=== PATIENT | female | born 1960 | race Caucasian/White ===

== ENCOUNTER 2018-01-31 00:46 | Outpatient (CLI) | payer BC, SELFPAY ==
--- NOTE | 2018-01-31 14:55 | DI.MAMMO_ITS ---
SYMPTOM/DIAGNOSIS: SCREENING, [facility], Z00.00 MAMMOGRAMS: Mammograms were interpreted according to the usual protocol including computer analysis with CAD system, tomosynthesis and C view imaging. Comparison is made with prior examinations. Breast density, Category B. Mammograms were interpreted according to the usual protocol including computer analysis with CAD system, tomosynthesis and C view imaging. No masses or microcalcifications are seen. There is nothing to suggest malignancy. IMPRESSION: Negative mammogram. Routine screening is recommended. Category 1B. MQSA ASSESSMENT OF FINDINGS: Negative. Category 1. Patient will receive a letter notifying them of these results. BI-RADS category B. There are scattered areas of fibroglandular density.
== END 2018-01-31 01:06 ==
PROVIDERS: PCP Family Medicine; Visit Provider Family Medicine
DX: Z12.31 Encounter for screening mammogram for malignant neoplasm of breast (principal); Z00.00 Encounter for general adult medical examination without abnormal findings
CPT/HCPCS: 77063; 77067

== ENCOUNTER 2018-05-12 08:29 | Day surgery (SDC) | payer BC, SELFPAY ==
--- NOTE | 2018-05-12 06:59 | W.COLOREPORT ---
Date of service: 05/12/18 Time of Service: 09: Colonoscopy Report Date of procedure: 05/12/18 Pre-op diagnosis general: Colon Cancer Screening Post-op diagnosis procedure note: same (Diverticulosis right sided and left sided) Procedure: Colonoscopy Surgeon: Teri Gray Anesthesia proc note operative: MAC (Jailene Veloz CRNA/ ASA 2) Estimated blood loss (mL): 0 Pathology: none sent Complications: None Disposition: same day Indications: Mrs. Munoz is a pleasant 58-year-old female who was seen in the office for a screening colonoscopy. This will be her first colonoscopy. She has no family history. Risks, benefits and complications have been reviewed. Complications include but are not limited to bleeding, pain, perforation, missed small lesion/polyp, sore throat, aspiration and adverse reaction to the medications. Questions were entertained and answered to their satisfaction and they wished to proceed. No guarantees were given or implied. Prep: Miralax/Dulcolax Procedure Start Time: : Procedure End Time: : Retraction Time: 10 minutes Findings: Mild right sided and left sided diverticulosis Procedure Description: After informed consent was obtained the patient was taken to the procedure room and placed in a left decubitous position. Monitors were applied and a time out was done. The patients name, date of , procedure, allergies to medications and metal in their body was reviewed. The patient was then sedated. Once sedated and comfortable a rectal exam was done. External exam was normal. Internal exam revealed a normal sphincter tone and no palpable masses. The scope was then introduced and retro-flexed. No internal hemorrhoids were identified. The scope was then advanced to the cecum without difficulty. The TI and appendiceal orifice were identified. The prep was good. The scope was then slowly retracted over 10 minutes back into the rectum. There were no polyps. There was mild diverticulosis in the right and left colon. The scope was removed and the patient was woken up and taken back to Same day surgery in stable condition. The patient tolerated the procedure well and there were no immediate complications. Follow up: The patient should follow up in 10 years unless they develop changes in bowel habits or other new gastrointestinal complaints.
--- NOTE | 2018-05-12 07:11 | W.PM.DSUDISC ---
Discharge Plan Disposition Patient Disposition: HOME Condition: Good Discharge Details Reason For Visit: Colon Cancer Screening Attending Provider: Teri Gray Primary Care Provider: Fanny Hammonds V Home Meds and New Rx's Prescriptions: Continued multivitamin with iron [One Daily Multi-Vit w-Mineral] tablet 1 tab PO DAILY RF: 0 levalbuterol tartrate [Xopenex HFA] 45 mcg/actuation HFA aerosol inhaler 2 inh IH Q6H RF: 0 omega-3 fatty acids [Fish Oil Concentrate] 1,000 mg capsule 1,000 mg PO DAILY RF: 0 hydrochlorothiazide 25 MG tablet 25 mg PO DAILY RF: 0 losartan 50 MG tablet 50 mg PO DAILY RF: 0 Discontinued bisacodyl [Dulcolax (bisacodyl)] 5 mg tablet,delayed release (DR/EC) 5 mg PO ONCE Qty: 4 RF: 0 polyethylene glycol 3350 17 gram/dose powder 255 g PO ONCE Qty: 255 RF: 0 Discharge Instructions Instructions: Colonoscopy (DC), Diverticulosis (DC) Additional Instructions: Findings: Diverticulosis Follow up: 10 years Please call if you develop: fevers >101.5 Nausea or Vomiting Abdominal pain that is not transient DAY SURGERY UNIT POST COLONOSCOPY INSTRUCTIONS 1. Because there will be medication in your system for the next 24 hours, you may feel a little sleepy. Your coordination will be affected. Therefore: a. Do not drive or operate dangerous equipment for 24 hours. b. Do not drink alcohol beverages for 24 hours (not even beer). c. Plan to go home and rest for the day. 2. Generally there are no restrictions on your activity after a day or so has gone by, but you may feel a bit fatigued for a few days. 3 After you arrive home you may have a light meal and return to a normal diet as you can tolerate it without feeling sick to your stomach. 4. After surgery, you may feel pain or discomfort. This should be only transient, but if it persists please contact your doctor. 5. If there are any questions regarding the findings of your procedure, please feel free to contact your doctor. 6. If you are unable to contact your doctor with a problem, contact the hospital at [phone]. 7. Continue all your regular medications unless directed otherwise. I understand the above instructions and have no questions. Signature of Patient or Responsible Adult Escort Date/Time Name of Responsible Adult Escort Signature of Nurse Date/Time Activity:: Activity as Tolerated Diet:: High Fiber diet Discharge Orders Discharge Orders: Discharge Order (Routine); Ordered 05/12/18 Ordered By: Teri Gray DS: Diagnosis Discharge Diagnosis (1) S/P colonoscopy: Status: Acute (2) Diverticulosis: Status: Acute
[2018-05-12 08:39] VITALS: BP 129/84; PULSE 99; RESP 16; TEMP 36.5; O2SAT 99
[2018-05-12] MEDS: Lactated Ringers 1,000 ML 80 ML IV (09:10)
[2018-05-12 10:16] VITALS: BP 113/78; PULSE 68; RESP 16; TEMP 36.1; O2SAT 100
== END 2018-05-12 10:25 | disposition home or self-care (01) ==
LOC: SUR 08:29
PROVIDERS: PCP Family Medicine; Visit Provider Surgery
PROC: 0DJD8ZZ Inspection of Lower Intestinal Tract, Via Natural or Artificial Opening Endoscopic (ICD-10-PCS; CPT 45378; principal; 2018-05-12 09:00)
DX: Z12.11 Encounter for screening for malignant neoplasm of colon (principal); K21.9 Gastro-esophageal reflux disease without esophagitis; I10 Essential (primary) hypertension
CPT/HCPCS: 45378

== ENCOUNTER 2018-08-25 16:41 | Outpatient (CLI) | payer BC, SELFPAY ==
--- NOTE | 2018-08-25 11:14 | DI.RAD_ITS ---
SYMPTOMS/DIAGNOSIS: COUGH, R05 PA AND LATERAL CHEST: Comparison 09/23/16. The heart is normal in size. The lungs are clear. The mediastinal structures and pleura appear intact. CONCLUSION: Normal chest.
== END 2018-08-25 17:01 ==
PROVIDERS: PCP Family Medicine; Visit Provider Physician Assistant Medical
DX: R05 Cough (principal)
CPT/HCPCS: 71046

== ENCOUNTER 2020-01-29 10:22 | Outpatient (REF) | payer BC, SELFPAY ==
[2020-01-29 19:19] LABS: Anion Gap 6.6 mmol/L (3-11); BUN 21 mg/dL (7-18); CO2 29.4 mmol/L (21.0-32.0); Calcium 9.5 mg/dL (8.5-10.1); Calculated LDL 137 mg/dL (<100); Chloride 104 mmol/L (98-107); Cholesterol 232 mg/dL (<200); Glucose 99 mg/dL (74-106); HDL Cholesterol 73 mg/dL (40-60); Potassium 3.4 mmol/L (3.5-5.1); Sodium 140 mmol/L (136-145); Triglyceride 112 mg/dL (<150)
== END 2020-01-29 10:42 ==
LOC: NCHCN 10:22
PROVIDERS: PCP Family Medicine; Visit Provider Family Medicine
DX: Z00.00 Encounter for general adult medical examination without abnormal findings (principal); I10 Essential (primary) hypertension
CPT/HCPCS: 80048; 80061

== ENCOUNTER 2020-09-15 10:32 | Emergency (ER) | payer OTHER, SELFPAY ==
[2020-09-15 10:37] VITALS: BP 150/96; PULSE 103; RESP 16; TEMP 36.6; O2SAT 100
[2020-09-15] MEDS: Tetracaine 0.5% 4 ML BTL OP (10:45)
[2020-09-15] MEDS: Balanced Salt Solution 15 ML BTL OP (10:45)
[2020-09-15] MEDS: Fluorescein STRIPS 100/BOX 1 MG OP (10:45)
--- NOTE | 2020-09-15 10:46 | ED.GENADUL_ITS ---
Discharge Plan Disposition Patient Disposition: HOME Condition: Stable Discharge Details Clinical Impression: Ocular pain, right eye, Corneal abrasion Primary Care Provider: Fanny Hammonds V ED Provider: Srinath Macario Home Meds and New Rx's Prescriptions: New erythromycin 5 mg/gram (0.5 %) ointment 0.5 inch ophthalmic (eye) TID Qty: 3.5 RF: 0 Continued multivitamin with iron [One Daily Multi-Vit w-Mineral] tablet 1 tab PO DAILY RF: 0 levalbuterol tartrate [Xopenex HFA] 45 mcg/actuation HFA aerosol inhaler 2 inh IH Q6H RF: 0 omega-3 fatty acids [Fish Oil Concentrate] 1,000 mg capsule 1,000 mg PO DAILY RF: 0 hydrochlorothiazide 25 MG tablet 25 mg PO DAILY RF: 0 losartan 50 MG tablet 50 mg PO DAILY RF: 0 Discharge Instructions Instructions: Corneal Abrasion (ED) Additional Instructions: follow up with your hiv prevention specialist next week if symptoms continue if you have severe worsening pain or decrease in vision return to the emergency department for reevaluation Medical Decision Making 60 yo female comes in with 2 days of right eye discomfort. She states it started when she was getting in the shower and felt something go in the eye, is not sure what it was. She has had discomfort since. She denies vision changes, fevers or discharge. On exam her visual acuity is 20/40 in the right and 20/30 in the left eye. She has no periorbital swelling, perrl, eomi without deep eye pain. Left conjunctiva normal. THe lateral right eye conjunctiva is injected, no discharge. She has no foreign body on exam even under the eye lids. She had immediate relief of pain with tetracaine. On flourescein staining she does have a 2mm corneal abrasion over the right lateral conjunctiva, no evidence of globe rupture on exam. Findings consistent with corneal abrasion. Will have her start antibiotic ointment and have her f/u with her hiv prevention specialist next week if not improving. Return precautions given. Differential Diagnosis Differential Diagnosis: scleritis, corneal abrasion, conjunctivitis, subconjunctival hemorrhage HPI General Mode of arrival: ambulatory . Date/Time Provider Initiated Documentation: 09/15/20 10:33 . Limitations to Documentation: no limitations . Information obtained by: patient . History of Present Illness 60 year old F presents to the emergency department with the chief complaint of right eye pain, described as moderate, and is localized to the eyes. and it has been constant. No relieving factors improve symptom(s), No exacerbating factors reported . Patient notes no other symptoms.. Related Data Home Medications Medication Instructions Recorded Confirmed hydrochlorothiazide 25 mg PO DAILY 09/23/16 09/15/20 losartan 50 mg PO DAILY 01/03/17 09/15/20 levalbuterol tartrate 45 2 inh IH Q6H 02/18/18 09/15/20 mcg/actuation aerosol inhaler multivitamin with iron 1 tab PO DAILY 02/18/18 09/15/20 omega-3 fatty acids 1,000 mg 1,000 mg PO DAILY 02/18/18 09/15/20 capsule erythromycin 0.5 inch OPHTHALMIC (EYE) TID #3.5 09/15/20 g Previous Rx's Medication Instructions Recorded erythromycin 0.5 inch OPHTHALMIC (EYE) TID #3.5 09/15/20 g Allergies Allergy/AdvReac Type Severity Reaction Status Date / Time erythromycin base AdvReac Mild sick to Verified 09/15/20 10:41 stomach General Stated Complaint: EyeProblem HEATHER: 3 Review of Systems All systems reviewed & are unremarkable except as noted in HPI and below Constitutional Constitutional: Denies chills and Denies fever(s) Cardiovascular Cardiovascular: Denies chest pain and Denies dyspnea Respiratory Respiratory: Denies dyspnea Gastrointestinal Gastrointestinal: Denies abdominal pain, Denies nausea and Denies vomiting Integumentary/Breasts Skin/Breast: Denies rash PFSH Medical History (Updated 09/15/20 @ 11:00 by Srinath Macario MD) Asthma Diverticulosis Eye pain GERD (gastroesophageal reflux disease) Hypertension Hypokalemia Obesity Surgical History (Updated 05/12/18 @ 09:50 by Teri Gray MD) H/O oophorectomy H/O vaginal hysterectomy S/P colonoscopy (~05/12/18) [place] teeth extracted Social History (Updated 04/18/18 @ 14:55 by Kristal Worthington RN) Smoking/Tobacco Use Status: Never Smoking risk assessment performed?: Yes Alcohol Intake: never Drug use: Never Substance use type: does not use Do you feel safe in your relationship?: Yes Exam Const General: no acute distress Orientation: alert HENMT Head: normal to inspection Ears: external ears normal General nose exam: external nose normal Mouth: moist mucous membranes Eyes Alignment and Position: alignment normal Neck Neck: normal visual inspection Resp Effort & Inspection: normal respiratory effort and able to speak in complete sentences Cardio Rate: regular rate Skin General skin exam: no rashes or lesions noted Neuro General: patient alert and patient oriented x3 Extrem General: normal to inspection Psych Mental Status: mental status grossly normal Course Vital Signs Vital signs: Vital Signs Temperature 36.6 C 09/15/20 10:37 Pulse 103 H 09/15/20 10:37 Respiratory Rate 16 09/15/20 10:37 Blood Pressure 150/96 H 09/15/20 10:37 Pulse Oximetry 100 09/15/20 10:37 Temperature 36.6 C 09/15/20 10:37 Temperature Source Skin 09/15/20 10:37 Pulse 103 H 09/15/20 10:37 Respiratory Rate 16 09/15/20 10:37 Respiratory Effort Non-Labored 09/15/20 10:37 Blood Pressure 150/96 H 09/15/20 10:37 Blood Pressure Position Sitting 09/15/20 10:37 Pulse Oximetry 100 09/15/20 10:37 Oxygen Delivery Method Room Air 09/15/20 10:37 Oxygen Flow Rate 0 09/15/20 10:37 Pain Level 2 09/15/20 10:37
== END 2020-09-15 11:13 | disposition home or self-care (01) ==
PROVIDERS: Emergency Provider Emergency Medicine; PCP Family Medicine
DX: S05.01XA Injury of conjunctiva and corneal abrasion without foreign body, right eye, initial encounter (principal); X58.XXXA Exposure to other specified factors, initial encounter
CPT/HCPCS: 99283

== ENCOUNTER 2021-03-14 08:43 | Outpatient (CLI) | payer OTHER, SELFPAY ==
--- NOTE | 2021-03-14 | DI.MAMMO_ITS ---
Exam(s) MAMMO SCREENING EXAM: MAMMO SCREENING CLINICAL HISTORY: SCREENING, ON [facility] OF [facility],Z00.00 TECHNIQUE: Mammograms were interpreted according to the usual protocol including computer analysis w [employer] CAD system, tomosynthesis and C-view imaging. COMPARISON: FINDINGS: The breasts are of moderate density with fairly symmetrical distribution of fibroglandular tissue. N o dominant mass or clumped microcalcification is identified in either breast. The current examinatio n is compared with previous examinations including January 2018 and there has been no gross interval change in appearance in comparison with the prior studies. IMPRESSION: No specific evidence of malignancy at this time. Routine screening examinations are suggested at yea rly intervals due to the family history of breast carcinoma. BI-RADS Category 1 - Negative Breast Density - Category B - Scattered areas of fibroglandular density
== END 2021-03-14 09:03 ==
PROVIDERS: PCP Family Medicine; Visit Provider Family Medicine
DX: Z00.00 Encounter for general adult medical examination without abnormal findings (principal); Z12.31 Encounter for screening mammogram for malignant neoplasm of breast; Z80.3 Family history of malignant neoplasm of breast
CPT/HCPCS: 77063; 77067

== ENCOUNTER 2021-06-21 14:41 | Outpatient (REF) | payer OTHER, SELFPAY ==
[2021-06-21 13:40] LABS: Anion Gap 6.7 mmol/L (3-11); BUN 20 mg/dL (7-18); CO2 31.3 mmol/L (21.0-32.0); CREATININE 0.9 mg/dL (0.55-1.02); Calcium 9.1 mg/dL (8.5-10.1); Calculated LDL 150 mg/dL (<100); Chloride 102 mmol/L (98-107); Cholesterol 240 mg/dL (<200); Glucose 97 mg/dL (74-106); HDL Cholesterol 74 mg/dL (40-60); Potassium 3.2 mmol/L (3.5-5.1); Sodium 140 mmol/L (136-145); Triglyceride 84 mg/dL (<150)
== END 2021-06-21 14:42 | disposition home or self-care (01) ==
LOC: NCHCN 14:41
PROVIDERS: PCP Family Medicine; Visit Provider Family Medicine
DX: I10 Essential (primary) hypertension (principal); Z00.00 Encounter for general adult medical examination without abnormal findings
CPT/HCPCS: 80048; 80061

== ENCOUNTER 2021-09-05 21:20 | Outpatient (REF) | payer OTHER, SELFPAY | END 2021-09-05 21:21 | disposition home or self-care (01) | LOC: NCHCN 21:20 | PROVIDERS: PCP Family Medicine; Visit Provider Family Medicine | DX: R30.0 Dysuria (principal); M54.59 Other low back pain | CPT/HCPCS: 87086 ==

== ENCOUNTER 2021-09-29 16:43 | Outpatient (REF) | payer OTHER, SELFPAY ==
[2021-09-29 15:34] LABS: AST 17 U/L (15-37); Calculated LDL 51 mg/dL (<100); Cholesterol 140 mg/dL (<200); Creatine Kinase 100 U/L (26-192); HDL Cholesterol 74 mg/dL (40-60); Triglyceride 75 mg/dL (<150)
== END 2021-09-29 16:44 | disposition home or self-care (01) ==
LOC: NCHCN 16:43
PROVIDERS: PCP Family Medicine; Visit Provider Family Medicine
DX: Z00.00 Encounter for general adult medical examination without abnormal findings (principal); E78.5 Hyperlipidemia, unspecified
CPT/HCPCS: 80061; 82550; 84450

== ENCOUNTER 2022-01-10 13:18 | Outpatient (CLI) | payer BC, SELFPAY ==
--- NOTE | 2022-01-10 | DI.RAD_ITS ---
Exam(s) XR FOOT RT COMPLETE EXAM: XR FOOT RT COMPLETE CLINICAL HISTORY: RT FOOT PAIN M79.671. TECHNIQUE: 2D digital imaging was performed. COMPARISON: No exams were available for comparison FINDINGS: 3 views Some dorsal soft tissue swelling is noted. No evidence of acute fracture or diastasis of the Lisfran c joint. Bone density normal. No osseous lesions. IMPRESSION: No fracture evident. DATA REPOSITORY: RADIATION DOSE DELIVERED:
== END 2022-01-10 13:38 ==
PROVIDERS: PCP Family Medicine; Visit Provider Physician Assistant Medical
DX: M79.671 Pain in right foot (principal); M79.89 Other specified soft tissue disorders
CPT/HCPCS: 73630

== ENCOUNTER 2022-06-17 10:56 | Emergency (ER) | payer BC, SELFPAY ==
[2022-06-17 11:08] VITALS: BP 120/75; PULSE 103; RESP 18; TEMP 36.9; O2SAT 100
--- NOTE | 2022-06-17 11:15 | ED.GENADUL_ITS ---
Discharge Plan Disposition Patient Disposition: Home Condition: Stable Discharge Details Clinical Impression: Sinusitis Primary Care Provider: Fanny Hammonds V ED Provider: Tex Beckwith Home Meds and New Rx's Prescriptions: New amoxicillin-pot clavulanate 875-125 mg tablet 1 tab PO Q12H 7 Days Qty: 14 0RF benzonatate 200 mg capsule 200 mg PO TID PRN (Reason: cough) Qty: 30 0RF albuterol sulfate 90 mcg/actuation HFA aerosol inhaler 2 puff inhalation Q6H PRN (Reason: shortness of breath or wheezing) Qty: 6.7 0RF Continued multivitamin with iron [One Daily Multi-Vit w-Mineral] tablet 1 tab PO DAILY levalbuterol tartrate [Xopenex HFA] 45 mcg/actuation HFA aerosol inhaler 2 inh IH Q6H omega-3 fatty acids [Fish Oil Concentrate] 1,000 mg capsule 1,000 mg PO DAILY hydrochlorothiazide 25 MG tablet 25 mg PO DAILY losartan 50 MG tablet 50 mg PO DAILY erythromycin 5 mg/gram (0.5 %) ointment 0.5 inch ophthalmic (eye) TID Qty: 3.5 0RF No Action rosuvastatin 5 mg tablet 5 mg PO DAILY Patient Comments: TAKE 1 TABLET BY MOUTH EVERY DAY Discharge Instructions Instructions: Sinusitis (ED) Additional Instructions: It is recommended that you take a probiotic for the next 30 days. Please do not take this with your antibiotic but take it in between doses. Stay well-hydrated and get plenty of rest and you may continue to use [id number] medication as needed for symptoms. If you develop any new or significant worsening of symptoms return to the emergency department for reassessment otherwise follow-up with your primary care provider if not improving. Stand Alone Forms: Work Release Referrals: Fanny Hammonds MD [Primary Care Provider] - (As needed for reassessment or if not improving) Discharge Data Discharge Date/Time-TO BE ENTERED AT DEPARTURE: 06/17/22 11:39 Medical Decision Making URI x1 week. Improved after 7 days but over the last 24 to 36 hours has had worsening sinus pain, cough, and productive cough along with change in sinus drainage. States daily COVID testing due to work requirements which have been negative. Exam does show significant sinus congestion and pressure otherwise a unremarkable nondiagnostic exam with normal cardiac and respiratory findings. Patient's symptoms highly suspicious for sinusitis so we will prescribe Augmentin. Patient has history of asthma so we will give refill of inhaler and Tessalon Perles. After discussion of diagnosis and plan of care patient has no further needs, questions, or concerns and states clear understanding to return to the emergency department for any worsening symptoms. This documentation was generated using [employer] dictation system, please disregard any oddities of phrase or misspellings. HPI General Mode of arrival: ambulatory . Date/Time Provider Initiated Documentation: 06/17/22 11:00 . Limitations to Documentation: no limitations . Information obtained by: patient and RN notes reviewed . History of Present Illness 62 year old F presents to the emergency department with the chief complaint of Worsening sinus pain and discomfort, described as moderate, with intensity rated at 8. Quality is described as aching, Patient reports no radiation. Patient started experiencing this day(s) (10) and it has been constant. No relieving factors improve symptom(s), No exacerbating factors reported . Patient did receive the following treatments prior to arrival, NSAID Related Data Home Medications Medication Instructions Recorded Confirmed hydrochlorothiazide 25 mg tablet 25 mg PO DAILY 09/23/16 06/17/22 losartan 50 mg tablet 50 mg PO DAILY 01/03/17 06/17/22 levalbuterol tartrate 45 2 inh inhalation Q6H 02/18/18 06/17/22 mcg/actuation aerosol inhaler (Xopenex HFA) multivitamin with iron (One Daily 1 tab PO DAILY 02/18/18 06/17/22 Multivitamins with Minerals tablet) omega-3 fatty acids 1,000 mg 1,000 mg PO DAILY 02/18/18 09/15/20 capsule (Fish Oil Concentrate) erythromycin 5 mg/gram (0.5 %) eye 0.5 inch ophthalmic (eye) TID #3.5 09/15/20 06/17/22 ointment grams albuterol sulfate 90 mcg/actuation 2 puff inhalation Q6H PRN 06/17/22 aerosol inhaler shortness of breath or wheezing #6.7 grams amoxicillin 875 mg-potassium 1 tab PO Q12H 7 days #14 tabs 06/17/22 clavulanate 125 mg tablet benzonatate 200 mg capsule 200 mg PO TID PRN cough #30 caps 06/17/22 rosuvastatin 5 mg tablet 5 mg PO DAILY 06/17/22 06/17/22 Previous Rx's Medication Instructions Recorded erythromycin 5 mg/gram (0.5 %) eye 0.5 inch ophthalmic (eye) TID #3.5 09/15/20 ointment grams albuterol sulfate 90 mcg/actuation 2 puff inhalation Q6H PRN 06/17/22 aerosol inhaler shortness of breath or wheezing #6.7 grams amoxicillin 875 mg-potassium 1 tab PO Q12H 7 days #14 tabs 06/17/22 clavulanate 125 mg tablet benzonatate 200 mg capsule 200 mg PO TID PRN cough #30 caps 06/17/22 Allergies Allergy/AdvReac Type Severity Reaction Status Date / Time erythromycin base AdvReac Mild sick to Verified 06/17/22 11:25 stomach General Stated Complaint: Sorethroat HEATHER: 3 Review of Systems Constitutional Constitutional: Reports body ache(s), Denies chills, Denies fever(s), Reports headache(s) and Reports malaise Eyes Eyes: Denies eye discharge ENT Ears, Nose, Mouth, and Throat: Reports as per HPI, Denies ear discharge, Denies otalgia, Reports headache(s), Reports nasal congestion, Denies neck pain, Reports sinus pain, Reports sinus pressure, Reports sore throat and Denies th roat swelling Cardiovascular Cardiovascular: Denies chest pain and Denies dyspnea Respiratory Respiratory: Reports cough and Denies dyspnea Musculoskeletal Musculoskeletal: Denies joint swelling and Denies neck pain Integumentary/Breasts Skin/Breast: Denies rash Neurologic Neurologic: Reports headache(s) Allergic/Immunologic Allergic/Immunologic: Denies throat swelling PFSH All Active Problems (Updated 06/17/22 @ 11:16 by Tex Beckwith NP) Ocular pain, right eye (Acute) Corneal abrasion (Acute) Sinusitis (Acute) Diverticulosis (Acute) S/P colonoscopy (Acute ~05/12/18) Encounter for screening colonoscopy (Acute) Medical History (Updated 06/17/22 @ 11:16 by Tex Beckwith NP) Asthma Eye pain GERD (gastroesophageal reflux disease) Hypertension Hypokalemia Obesity Surgical History H/O oophorectomy H/O vaginal hysterectomy [place] teeth extracted Social History Smoking/Tobacco Use Status: Never Smoking risk assessment performed?: Yes Alcohol Intake: current Alcohol Intake frequency: holidays/special occasions only Drug use: Never Substance use type: does not use Do you feel safe at home: Yes Do you feel safe in your relationship?: Yes Exam Const General: cooperative, comfortable and no acute distress Orientation: alert and awake [facility] Head: normal to inspection, normocephalic and atraumatic Ears: hearing grossly normal bilaterally and TM's normal bilaterally General nose exam: external nose normal Face and sinus: no erythema and sinus tenderness ethmoid and maxillary Mouth: oral mucosae normal, no drooling, no muffled voice and no trismus Throat: posterior oropharynx normal Neck Neck: normal visual inspection, full ROM, no lymphadenopathy, no meningeal signs, trachea midline and supple Resp Effort & Inspection: normal respiratory effort and able to speak in complete sentences Auscultation: clear to auscultation bilaterally Cardio Rate: regular rate Rhythm: regular rhythm Heart Sounds: S1 normal, S2 normal, normal S1 and S2, no click, no gallops, no murmurs and no rubs Skin General skin exam: no rashes or lesions noted and dry skin (warm) Neuro General: patient alert, patient awake, patient oriented x3, gait normal and moves all extremities Cognition: normal cognition Speech: speech normal
== END 2022-06-17 11:39 | disposition home or self-care (01) ==
PROVIDERS: Emergency Provider Nurse Practitioner Family; PCP Family Medicine
DX: J32.9 Chronic sinusitis, unspecified (principal); J45.909 Unspecified asthma, uncomplicated; I10 Essential (primary) hypertension
CPT/HCPCS: 99283; 99284

== ENCOUNTER 2022-06-29 18:36 | Outpatient (REF) | payer BC, SELFPAY ==
[2022-06-29 16:44] LABS: Bilirubin Negative (Negative); Blood Negative (Negative); Clarity Clear (Clear); Glucose Negative (Negative); Ketones Negative (Negative); Leukocyte Esterase Small (Negative); Nitrite Negative (Negative); Urobilinogen 0.2 mg/dL (Up to 0.2); pH 6.5 (5-8)
[2022-06-29 16:55] LABS: Epithelial Cells Few HPF (Negative); RBC 0-2 HPF (0-2)
[2022-06-29 16:56] LABS: Bacteria Few HPF (Negative); C & S Indicated? Yes; Casts Negative LPF (Negative); Crystals Negative HPF (Negative); Mucus Negative (Negative)
== END 2022-06-29 18:37 | disposition home or self-care (01) ==
LOC: NCHCN 18:36
PROVIDERS: PCP Family Medicine; Visit Provider Family Medicine
DX: R30.0 Dysuria (principal)
CPT/HCPCS: 81003; 81015; 87086

== ENCOUNTER 2022-11-06 18:48 | Outpatient (REF) | payer BC, SELFPAY ==
[2022-11-06 13:20] LABS: Bilirubin Negative (Negative); Blood Large (Negative); Clarity Sl Cloudy (Clear); Glucose Negative (Negative); Ketones Negative (Negative); Leukocyte Esterase Small (Negative); Nitrite Negative (Negative); Specific Gravity 1.015 (1.005-1.025)
[2022-11-06 13:31] LABS: Bacteria Few HPF (Negative); Epithelial Cells Rare HPF (Negative); RBC >50 HPF (0-2); WBC 20-50 HPF (0-5)
[2022-11-06 13:32] LABS: C & S Indicated? Yes; Casts Negative LPF (Negative); Crystals Negative HPF (Negative); Mucus Negative (Negative)
== END 2022-11-06 18:49 | disposition home or self-care (01) ==
LOC: NCHCN 18:48
PROVIDERS: PCP Family Medicine; Visit Provider Family Medicine
DX: R31.9 Hematuria, unspecified (principal)
CPT/HCPCS: 81003; 81015; 87086

== ENCOUNTER 2022-12-07 19:02 | Outpatient (REF) | payer BC, SELFPAY ==
[2022-12-07 15:30] LABS: HCT 40.6 % (36.0-46.0); HGB 13.9 g/dL (11.2-15.7); MCHC 34.2 % (32.0-36.0); MCV 88 fL (80-95); MPV 10.2 fL (8.0-11.0); Platelet Count 232 10^3/uL (130-400); RBC 4.64 10^6/uL (3.93-5.22); RDW 12.5 % (11.7-14.6); RDW-SD 40.2 fL; WBC 5.17 10^3/uL (4.4-10.8)
[2022-12-07 15:39] LABS: Anion Gap 9.6 mmol/L (3-11); BUN 15 mg/dL (7-18); CO2 27.4 mmol/L (21.0-32.0); CREATININE 1.1 mg/dL (0.55-1.02); Calcium 9.1 mg/dL (8.5-10.1); Chloride 103 mmol/L (98-107); Estimated GFR 57.52 (mL/min/1.73m2); Glucose 142 mg/dL (74-106); Potassium 3.2 mmol/L (3.5-5.1); Sodium 140 mmol/L (136-145)
== END 2022-12-07 19:03 | disposition home or self-care (01) ==
LOC: NCHCN 19:02
PROVIDERS: PCP Family Medicine; Visit Provider Family Medicine
DX: N13.30 Unspecified hydronephrosis (principal); I10 Essential (primary) hypertension; R79.89 Other specified abnormal findings of blood chemistry
CPT/HCPCS: 80048; 85027

== ENCOUNTER 2023-02-12 09:34 | Outpatient (REF) | payer BC, SELFPAY ==
[2023-02-12 16:16] LABS: Hemoglobin A1C 5.6 % (<5.7)
[2023-02-12 16:37] LABS: ALT 31 U/L (14-59); AST 19 U/L (15-37); Albumin 3.8 g/dL (3.4-5.0); Alkaline Phosphatase 74 U/L (46-116); Anion Gap 7.7 mmol/L (3-11); BUN 21 mg/dL (7-18); Bilirubin, Total 0.5 mg/dL (0.2-1.0); CO2 28.3 mmol/L (21.0-32.0); CREATININE 0.9 mg/dL (0.55-1.02); Calcium 9.6 mg/dL (8.5-10.1); Chloride 103 mmol/L (98-107); Estimated GFR 73.19 (mL/min/1.73m2); Glucose 109 mg/dL (74-106); Potassium 3.5 mmol/L (3.5-5.1); Sodium 139 mmol/L (136-145); Total Protein 7.1 g/dL (6.4-8.2)
== END 2023-02-12 09:35 | disposition home or self-care (01) ==
LOC: NCHCN 09:34
PROVIDERS: PCP Family Medicine; Visit Provider Family Medicine
DX: Z00.00 Encounter for general adult medical examination without abnormal findings (principal); E78.5 Hyperlipidemia, unspecified; R73.09 Other abnormal glucose
CPT/HCPCS: 80053; 83036

== ENCOUNTER → 2023-04-23 01:32 | Outpatient (CLI) | payer BC, SELFPAY ==
--- NOTE | 2023-04-23 | DI.MAMMO_ITS ---
Exam(s) MAMMO SCREENING EXAM: MAMMO SCREENING CLINICAL HISTORY: SCREENING FOR BREAST CANCER Z12.31 PREVENTIVE [facility] C[facility] Z00.00. TECHNIQUE: Bilateral full field digital CC and MLO mammographic images were obtained with 3D tomosyn thesis and utilizing computer aided detection (CAD). COMPARISON: Prior mammograms were reviewed. FINDINGS: There has been no significant change in the appearance and distribution of the fibroglandular tissue which is again noted be predominately fatty.. There are no CAD designations. There are no new spiculated masses nor malignant appearing microcalcification groups. There is no significant architectural distortion nor skin thickening-retraction. IMPRESSION: No radiographic evidence of malignancy. BI-RADS Category 1 - Negative Breast Density - Category A - Almost entirely fatty Breast density Category C or D implies that the patient has dense breast tissue. Dense breast tissue can make it harder to find cancer on a mammogram. Dense breast tissue is also associated with an incr eased risk of breast cancer. This information about the result of the mammogram report was provided to the patient to raise their awareness. Use this report when you speak with the patient about their risks for breast cancer, which includes their family history. At that time, you may recommend additional screening tests (Ultrasoun d or MRI) as these tests may add significant information. A negative radiographic report should not delay biopsy if a dominant or clinically suspicious mass is present. Up to ten percent of cancers are not identified on mammography. A negative report may reinforce clinical impression. Adenosis and dense breasts may obscure an underlying neoplasm. False positive reports average 6 to 10%. Patient will receive a letter notifying them of these results.
== END ==
PROVIDERS: PCP Family Medicine; Visit Provider Family Medicine
DX: Z12.31 Encounter for screening mammogram for malignant neoplasm of breast (principal)
CPT/HCPCS: 77063; 77067

== ENCOUNTER 2024-02-27 17:46 | Emergency (ER) | payer BC, SELFPAY ==
[2024-02-27 17:47] VITALS: BP 142/89; PULSE 103; RESP 18; TEMP 36.9; O2SAT 98
[2024-02-27 17:52] VITALS: BP 142/89; PULSE 103; RESP 18; TEMP 36.9; O2SAT 98
--- NOTE | 2024-02-27 18:05 | ED.GENADUL_ITS ---
Discharge Plan Disposition Patient Disposition: Home Condition: Stable Discharge Details Clinical Impression: Hematuria, Hypokalemia Primary Care Provider: Fanny Hammonds V ED Provider: Carolina Mayes Home Meds and New Rx's Prescriptions: No Action multivitamin with iron [One Daily Multi-Vit w-Mineral] tablet 1 tab PO DAILY levalbuterol tartrate [Xopenex HFA] 45 mcg/actuation HFA aerosol inhaler 2 inh IH Q6H omega-3 fatty acids [Fish Oil Concentrate] 1,000 mg capsule 1,000 mg PO DAILY fluticasone propionate [Flovent HFA] 44 mcg/actuation HFA aerosol inhaler 2 puff inhalation BID Rx Instructions: administer with spacer ibuprofen 200 mg tablet 200 mg PO Q6H PRN acetaminophen 500 mg capsule 500 mg PO Q6H PRN hydrochlorothiazide 25 MG tablet 25 mg PO DAILY losartan 50 MG tablet 50 mg PO DAILY benzonatate 200 mg capsule 200 mg PO TID PRN (Reason: cough) Qty: 30 0RF albuterol sulfate 90 mcg/actuation HFA aerosol inhaler 2 puff inhalation Q6H PRN (Reason: shortness of breath or wheezing) Qty: 6.7 0RF rosuvastatin 5 mg tablet 5 mg PO DAILY Patient Comments: TAKE 1 TABLET BY MOUTH EVERY DAY Discharge Instructions Instructions: Blood in Urine (Hematuria), Adult ED Additional Instructions: You were seen in the emergency department today for evaluation of hematuria and urinary tract symptoms. Department a full physical examination performed, had a urinalysis that showed blood but no sign of infections, had otherwise reassuring laboratory studies with the exception of a borderline low potassium. You had a CT scan that showed evidence of inflammation in your bladder and need to follow- up with your urologist to discuss next [place] management. He can also use senna and MiraLAX [id number] for constipation management. Thank you for allowing us to be part of your care. HPI General Mode of arrival: ambulatory . Date/Time Provider Initiated Documentation: 02/27/24 17:53 . Limitations to Documentation: no limitations . Information obtained by: patient and old records reviewed . HPI Narrative: HPI: This is a 63-year-old female patient with a past medical history significant for hyperlipidemia, episode of hydronephrosis identified on ultrasound last year of unknown etiology, as well as diverticulosis. She is presenting for evaluation of intermittent urinary symptoms including hematuria, dysuria, and urinary urgency and frequency. The patient reports that she had an episode of hematuria on Saturday, states that she notices a worsening of her urinary symptoms when she is constipated. She did not have symptoms throughout the week but this afternoon she noted urgency, frequency, and hematuria with dysuria. This prompted her to seek care. The patient reports that she was previously referred to urology for evaluation of her ultrasonography abnormalities, but has never had any urological procedures done. She has not yet been able to follow-up with urology due to home and family commitments. The patient reports that she has not taken antibiotics in some time, has not had a fever, has been eating and drinking normally and not experiencing nausea or vomiting. She is not experiencing flank pain or abdominal pain. The patient reports that she does not use any [id number] medications for management of her constipation, did pass a normal stool yesterday but feels like she is becoming constipated again. Exam: Gen: Awake and alert, in no apparent distress HEENT: Non-icteric sclera Neck: Supple Lungs: No apparent respiratory distress, normal respiratory effort. CV: Appears well perfused, strong distal pulses Abdomen: Non-distended, soft, nontender, no rigidity, rebound, guarding. There is no CVA tenderness nor overlying skin changes on the back or flanks MSK: Moves 4 extremities without apparent limitation in ROM Skin: Visualized skin without rashes, cyanosis. Neuro: Normal Gait, no obvious focal deficits or facial asymmetry. Speaks in full, clear sentences. Psych: Appropriate for situation. MDM: This is a 63-year-old female patient presenting for evaluation of urinary tract symptoms. My differential includes but is not limited to urinary tract infection, most consistent with simple cystitis. I considered pyelonephritis, kidney stone, but this is less consistent with the patient's history and physical examination. The patient has no evidence of systemic illness to suggest bacteremia, sepsis, metabolic or electrolyte derangements, kidney injury. I did review the ultrasound that was performed last year, which showed slight prominence of the collecting systems bilaterally which at that time was thought to represent mild hydronephrosis. I also consider the contribution of constipation on this patient's urinary tract symptoms. She reassuringly does not have obstipation which would suggest small bowel obstruction, and has a benign abdominal examination at this time. We will obtain a urinalysis. ED Course: Urinalysis shows gross hematuria with no evidence of infection. Given this finding, I am concerned for malignancy versus renal stone, and obtain laboratory studies as well as a CT of the abdomen and pelvis. The laboratory studies showed no leukocytosis, anemia, or thrombocytopenia, making coagulopathy less likely in this patient with no history of prolonged bleeding. Her chemistry panel demonstrates very mild hypokalemia, slightly elevated BUN to 23 but no other evidence of renal dysfunction, no evidence of liver disease. CT showed evidence of cystitis but less concerning for malignancy and no evidence of stone. Given the lack of infectious changes on UA I did not see an indication for initiation of antibiotics, and the patient will likely require cystoscopy and for this reason a referral to urology was provided. At this time, the patient has had a full medical evaluation and is safe for discharge to home. They are hemodynamically stable, ambulatory, and tolerating PO. They are understanding of the follow-up plan and return precautions. They left our facility without incident. Carolina Mayes MD Related Data Home Medications ?Medication ?Instructions ?Recorded ?Confirmed hydrochlorothiazide 25 mg tablet 25 mg PO DAILY 09/23/16 02/27/24 losartan 50 mg tablet 50 mg PO DAILY 01/03/17 02/27/24 levalbuterol tartrate 45 2 inh inhalation Q6H 02/18/18 02/27/24 mcg/actuation aerosol inhaler (Xopenex HFA) multivitamin with iron (One Daily 1 tab PO DAILY 02/18/18 02/27/24 Multivitamins with Minerals tablet) omega-3 fatty acids 1,000 mg 1,000 mg PO DAILY 02/18/18 02/27/24 capsule (Fish Oil Concentrate) albuterol sulfate 90 mcg/actuation 2 puff inhalation Q6H PRN 06/17/22 02/27/24 aerosol inhaler shortness of breath or wheezing #6.7 grams benzonatate 200 mg capsule 200 mg PO TID PRN cough #30 caps 06/17/22 02/27/24 rosuvastatin 5 mg tablet 5 mg PO DAILY 06/17/22 02/27/24 acetaminophen 500 mg capsule 500 mg PO Q6H PRN 02/18/23 02/27/24 fluticasone propionate 44 2 puff inhalation BID 02/18/23 02/27/24 mcg/actuation HFA aerosol inhaler (Flovent HFA) ibuprofen 200 mg tablet 200 mg PO Q6H PRN 02/18/23 02/27/24 Previous Rx's ?Medication ?Instructions ?Recorded albuterol sulfate 90 mcg/actuation 2 puff inhalation Q6H PRN 06/17/22 aerosol inhaler shortness of breath or wheezing #6.7 grams benzonatate 200 mg capsule 200 mg PO TID PRN cough #30 caps 06/17/22 Allergies Allergy/AdvReac Type Severity Reaction Status Date / Time erythromycin base AdvReac Mild sick to Verified 02/27/24 17:50 stomach citalopram (From Celexa) AdvReac feels foggy Verified 02/27/24 21:30 General Stated Complaint: Urinary HEATHER: 3 Course Vital Signs Vital signs: Vital Signs Temperature 36.9 C 02/27/24 17:47 Pulse 103 H 02/27/24 17:47 Respiratory Rate 18 02/27/24 17:47 Blood Pressure 142/89 H 02/27/24 17:47 Pulse Oximetry 98 02/27/24 17:47 Temperature 36.9 C 02/27/24 17:52 Temperature Source Temporal Artery Scan 02/27/24 17:52 Pulse 103 H 02/27/24 17:52 Respiratory Rate 18 02/27/24 17:52 Respiratory Effort Normal, Non-Labored 02/27/24 17:52 Blood Pressure 142/89 H 02/27/24 17:52 Pulse Oximetry 98 02/27/24 17:52 Lab/Test Results Lab/Test Results: Laboratory Tests Range/Units 02/26/24 17:50 Urine Color Cancelled Urine Clarity Cancelled Urine pH Cancelled Ur Specific [place] Cancelled Urine Protein Cancelled Urine Ketones Cancelled Urine Blood Cancelled Urine Nitrite Cancelled Urine Bilirubin Cancelled Urine Urobilinogen Cancelled Ur Leukocyte Esterase Cancelled Urine Glucose Cancelled Medical Decision Making Quality:SDOH Health Related Social Needs: No Data to Display PFSH All Active Problems (Updated 02/27/24 @ 20:43 by Carolina Mayes MD) Hypokalemia (Acute) Hematuria (Acute) Reaction, situational (Chronic) Hyperlipidemia (Acute) Hydronephrosis (Acute) Corneal abrasion (Acute) Ocular pain, right eye (Acute) Diverticulosis (Acute) S/P colonoscopy (Acute ~05/12/18) Encounter for screening colonoscopy (Acute) Medical History (Updated 02/27/24 @ 20:43 by Carolina Mayes MD) Ovarian cyst Cerumen impaction Obesity Asthma Hypertension GERD (gastroesophageal reflux disease) Eye pain Hypokalemia Surgical History (Updated 02/18/23 @ 13:57 by Latesha Iraheta RN) History of oophorectomy, unilateral [place] teeth extracted H/O vaginal hysterectomy H/O oophorectomy Social History Smoking/Tobacco Use Status: Never Smoking risk assessment performed?: Yes Alcohol Intake: current Alcohol Intake frequency: holidays/special occasions only Drug use: Never Substance use type: does not use Do you feel safe at home: Yes Do you feel safe in your relationship?: Yes
[2024-02-27 18:20] LABS: Bilirubin Negative (Negative); Blood Large (Negative); Clarity Turbid (Clear); Glucose Negative (Negative); Ketones Negative (Negative); Leukocyte Esterase Negative (Negative); Nitrite Negative (Negative); Specific Gravity >= 1.030 (1.005-1.025); Urobilinogen 0.2 mg/dL (Up to 0.2)
[2024-02-27 18:37] LABS: RBC >50 HPF (0-2)
[2024-02-27 18:39] LABS: C & S Indicated? No
--- NOTE | 2024-02-27 18:45 | DI.CT_ITS ---
Exam(s) CT ABDOMEN PELVIS W EXAM: CT ABDOMEN PELVIS W CLINICAL HISTORY: painless hematuria, eval stone, tumor. TECHNIQUE: Imaging Protocol: Axial computed tomography images with coronal and sagittal reformatted images were created and reviewed CONTRAST MATERIAL: Intravenous: Omnipaque 350 Contrast volume:85 ml Oral: / no COMPARISON: No exams were available for comparison FINDINGS: ABDOMEN and PELVIS: Lung Bases: No acute findings. Liver: Normal density. No suspicious mass. Gallbladder and biliary tract: No radiodense calculus. No biliary dilation. Pancreas: Normal density. No abnormal calcifications or inflammatory process. No evidence of mass. Spleen: Normal. Kidneys: Normal size, contour and axis. No radiodense stones. No obstructive uropathy. No suspicious masses seen. Adrenal glands: No masses seen. Vasculature: Abdominal aorta non-dilated. Soft tissues: Unremarkable. Bladder: N the urinary bladder is empty, limiting evaluation. There is enhancement of the wall whic h could indicate cystitis. No calculi. Bowel: No obstruction. No bowel wall thickening. Mild diverticulosis lower descending and sigmoid colon. No evidence of diverticulitis. Peritoneal cavity: No ascites. No focal collection. No mesenteric inflammatory response. Bones: Unremarkable for age. Reproductive organs: Status post hysterectomy. Lymph nodes: No pathologically enlarged lymph nodes. IMPRESSION:: Upon the urinary bladder is empty, limited evaluation. There is however apparent wall thickening as well as enhancement of the mucosa, suspicious for cystitis. No large mass is visible. No evidence of renal mass or hydronephrosis. RADIATION DOSE DELIVERED: 649.25mGy.cm Total DLP DATA REPOSITORY: All CT scans at this facility are submitted to the National Radiology Data Registry (NRDR) Dose Index Registry (DIR) with the [employer] (ACR). RADIATION OPTIMIZATION: All CT scans at this facility use at least one of these dose optimization te chniques: automated exposure control; mA and/or kV adjustment per patient size (includes targeted exa ms where dose is matched to clinical indication); or iterative reconstruction.
[2024-02-27 19:35] LABS: Abs Immature Grans 0.03 10^3/uL (0.0-0.06); Absolute Basophil Count 0.04 10^3/uL (0.0-0.2); Absolute Eosinophil Count 0.21 10^3/uL (0.0-0.7); Absolute Lymphocyte Count 1.12 10^3/uL (1.2-3.4); Absolute Monocyte Count 0.55 10^3/uL (0.1-0.8); Absolute Neutrophil Count 8.22 10^3/uL (1.2-6.7); Basophils % 0.4 %; Eosinophils % 2.1 %; HCT 43.1 % (36.0-46.0); HGB 14.5 g/dL (11.2-15.7); Immature Grans % 0.3 %; MCH 30.1 pg (27.0-33.0); MCHC 33.6 % (32.0-36.0); MCV 90 fL (80-95); MPV 9.4 fL (8.0-11.0); Monocytes % 5.4 %; Neutrophils % 80.8 %; Platelet Count 239 10^3/uL (130-400); RBC 4.81 10^6/uL (3.93-5.22); RDW 12.2 % (11.7-14.6); RDW-SD 40.5 fL; WBC 10.17 10^3/uL (4.4-10.8)
[2024-02-27 19:48] LABS: ALT 26 U/L (14-59); AST 19 U/L (15-37); Alkaline Phosphatase 80 U/L (46-116); Anion Gap 10.8 mmol/L (3-11); BUN 23 mg/dL (7-18); Bilirubin, Total 0.58 mg/dL (0.2-1.0); CO2 28.2 mmol/L (21.0-32.0); CREATININE 0.8 mg/dL (0.55-1.02); Calcium 9.6 mg/dL (8.5-10.1); Chloride 103 mmol/L (98-107); Estimated GFR 83.78 (mL/min/1.73m2); Glucose 98 mg/dL (74-106); Potassium 3.4 mmol/L (3.5-5.1); Sodium 142 mmol/L (136-145); Total Protein 7.5 g/dL (6.4-8.2)
[2024-02-27] MEDS: Normal Saline - Diluent 50 ML VIAL IJ (19:53)
[2024-02-27] MEDS: Omnipaque 350 MG/ML 100 ML BTL IJ (19:56)
--- NOTE | 2024-02-27 20:26 | DI.VRAD_ITS ---
PROCEDURE INFORMATION: Exam: CT Abdomen And Pelvis With Contrast Exam date and time: 02/27/2024 7:51 PM Age: 63 years old Clinical indication: Other: Painless hematuria, eval stone, tumor TECHNIQUE: Imaging protocol: Computed tomography of the abdomen and pelvis with contrast. Contrast material: OMNI 350; Contrast volume: 85 ml; Contrast route: INTRAVENOUS (IV); COMPARISON: US RENAL 11/28/2022 9:07 AM FINDINGS: Liver: Fatty liver with no mass lesions. Small hepatic calcification compatible with a benign granuloma. Gallbladder and biliary ducts: No calcified stones. No gross ductal dilation. Pancreas: No ductal dilation. No mass . Spleen: Mild splenomegaly without focal splenic lesions. Adrenal glands: No suspicious mass. Kidneys and ureters: No significant stones in the collecting systems on postcontrast imaging. Stomach and bowel: Scattered colonic diverticula without inflammation. No focal pathology in the small bowel. Appendix: No evidence of appendicitis. Intraperitoneal space: No free air. No significant fluid collection. Vasculature: No abdominal aortic aneurysm. Lymph nodes: No significantly enlarged lymph nodes. Urinary bladder: Moderate wall thickening of the urinary bladder is suspected, the bladder is nearly completely decompressed and this is poorly assessed. The bladder wall appears hyperemic and there is mild surrounding edema click 2 No renal masses or hydronephrosis bilaterally. Reproductive: Hysterectomy. Bones/joints: Minor distal lumbar spondylosis. No acute fracture or subluxation. Soft tissues: No suspicious lesions. IMPRESSION: Bladder wall findings suggest cystitis over malignancy, follow-up suggested given the clinical history. Incidental findings as described. Dictated and Authenticated by: Harper Garcia MD. Ordering:YUAN Voss MD
[2024-02-27 20:50] VITALS: BP 118/85; PULSE 81; O2SAT 100
== END 2024-02-27 20:50 | disposition home or self-care (01) ==
PROVIDERS: Emergency Provider Emergency Medicine; PCP Family Medicine
DX: R30.0 Dysuria (principal); R39.15 Urgency of urination; R31.9 Hematuria, unspecified; E87.6 Hypokalemia
CPT/HCPCS: 36415; 80053; 99285; 74177; 81003; 81015; 83735; 85025; 99283; J3490

== ENCOUNTER 2024-04-02 06:24 | Day surgery (SDC) | payer BC, SELFPAY ==
[2024-04-02] VITALS (20 sets, daily range): BP systolic 92–132; BP diastolic 58–79; PULSE 66–101; RESP 9–31; TEMP 35.9–36.5; O2SAT 99–100; BMI 33.9
--- NOTE | 2024-04-02 06:31 | W.ANESPRE ---
General Info Date of Service Date Performed: 04/02/24 Height: 5 ft 2.25 in Weight: 84.822 kg Body Mass Index (BMI): 33.9 Surgical Procedure: Operation Date: 04/02/24 07:40 Proposed Procedure Side Surgeon p Cystoscopy/Bi-Lat Retrograde/Possible Transurethral Resection Bladder Tumor Juice Garcia MD Meds Allergies and Home Medications Allergies Allergy/AdvReac Type Severity Reaction Status Date / Time erythromycin base AdvReac Mild sick to Verified 04/01/24 10:56 stomach citalopram (From Celexa) AdvReac feels foggy Verified 04/01/24 10:56 Home Medication ?Medication ?Instructions ?Recorded hydrochlorothiazide 25 mg tablet 25 mg PO DAILY 09/23/16 losartan 50 mg tablet 50 mg PO DAILY 01/03/17 levalbuterol tartrate 45 2 inh inhalation Q6H 02/18/18 mcg/actuation aerosol inhaler (Xopenex HFA) multivitamin with iron (One Daily 1 tab PO DAILY 02/18/18 Multivitamins with Minerals tablet) omega-3 fatty acids 1,000 mg 1,000 mg PO DAILY 02/18/18 capsule (Fish Oil Concentrate) albuterol sulfate 90 mcg/actuation 2 puff inhalation Q6H PRN 06/17/22 aerosol inhaler shortness of breath or wheezing #6.7 grams benzonatate 200 mg capsule 200 mg PO TID PRN cough #30 caps 06/17/22 rosuvastatin 5 mg tablet 5 mg PO DAILY 06/17/22 acetaminophen 500 mg capsule 500 mg PO Q6H PRN 02/18/23 fluticasone propionate 44 2 puff inhalation BID 02/18/23 mcg/actuation HFA aerosol inhaler (Flovent HFA) ibuprofen 200 mg tablet 200 mg PO Q6H PRN 02/18/23 Current Visit Medications: Current Medications Generic Name Dose Route Start Last Admin Trade Name Freq PRN Reason Stop Dose Admin Cefazolin Sodium/Dextrose 2 gm in 50 mls @ 100 mls/hr 04/02/24 06:00 Ancef Duplex IVPB 04/02/24 23:59 PREOP LAQUITA IV Miscellaneous Supplies 1 each 04/02/24 06:00 Iv Access IV 04/02/24 23:59 DIRECTED LAQUITA Sodium Chloride 0 ml 04/02/24 06:00 Normal Saline Flush 10 Ml Syr IV 04/02/24 23:59 PRN PRN Sodium Chloride 0 ml 04/02/24 06:00 Normal Saline 10 Ml Vial IJ 04/02/24 23:59 DIRECTED PRN Sterile Water 0 ml 04/02/24 06:00 Water,Injection,Sterile 10 Ml Vial IJ 04/02/24 23:59 DIRECTED PRN PFSH Active Problems Active Problems: Problem Status Onset Code Reaction, situational Chronic F43.20 Hyperlipidemia Acute E78.5 Corneal abrasion Acute S05.00XA Ocular pain, right eye Acute H57.11 Diverticulosis Acute K57.90 S/P colonoscopy Acute ~05/12/18 Z98.890 Encounter for screening colonoscopy Acute Z12.11 Medical History Medical History (Updated 04/02/24 @ 07:01 by Juice Garcia MD) Gross hematuria Ovarian cyst Cerumen impaction Obesity Asthma Hypertension GERD (gastroesophageal reflux disease) Eye pain Hypokalemia Medical History Comments:: brother has a hard time coming out of anes Surgical History Surgical History History of oophorectomy, unilateral [place] teeth extracted H/O vaginal hysterectomy H/O oophorectomy Tobacco Smoking/Tobacco Use Status: Never Alcohol Alcohol Intake: current Alcohol intake frequency: holidays/special occasions only Substance Use Substance use: Never Substance use type: does not use Vital Signs and Lab Results Lab Results Blood Type / Crossmatch: No Data to Display Complete Blood Count: No Data to Display Complete Metabolic Panel: No Data to Display Liver Function Panel: No Data to Display Coagulation Panel: No Data to Display Cardiac Panel: No Data to Display Arterial Blood Gas: No Data to Display Venous Blood Gas: No Data to Display Pancreas Panel: No Data to Display Thyroid Panel: No Data to Display Infectious Disease: No Data to Display Blood Cultures: No Data to Display Toxicology Panel: No Data to Display Anesthesia Assessment and Plan Anesthesia History Personal History: No History of Anesthesia Complications Family History: Other Exercise Tolerance Exercise Tolerance: Metabolic Equivalents>4 Cardiac & Pulmonary Exam Cardiac Exam: Normal S1/S2 Heart Sounds Pulmonary Exam: Clear Bilateral Breath Sounds Implantable Cardiac Device Does patient have a Pacemaker or an ICD?: No Airway Exam Known Difficult Airway: No Mallampati Class: 3 Mouth Opening: Narrow (< 3cm) Thyromental Distance: Greater than 3 cm Neck Range of Motion: Full ROM Neck Circumference: Normal Teeth Condition: Normal Dentition ASA Classification ASA Score: ASA 2 Emergency Case?: No NPO Status NPO Status: NPO Clears >2 hours, Solids >8 hours Anesthesia Plan Resuscitation Status: Full Code Anesthesia Technique: General Anesthesia Airway Planned: LMA Monitors Used: Standard Monitors Preoperative Comments:: 64 yo female for cysto. Sig PMHx: HTN (losartan, HCTZ. well controlled), GERD (denies issues with this), asthma (albuterol - hasn't used in a while), never smoker, occ EtOH. Previous Anes: - colo, prop, natural airway, no issues.
--- NOTE | 2024-04-02 06:56 | HPE_ITS ---
Date of service: 04/02/24 Time of Service: 06:56 Assessment and Plan Assessment and plan (1) Gross hematuria: Assessment and plan: The imaging of her kidneys reveal no suspicious areas. We will complete her hematuria workup with cystoscopy and bilateral retreograde puelograms. We will be prepared to do bladder biopsy/TURBT if any abnormalities are identified. History of Present Illness History of Present Illness Chief Complaint: Gross hematuria Narrative: This is a 64-year-old woman who has a history of microscopic hematuria. He was evaluated with a renal ultrasound about a year ago. There was some concern about the presence of hydronephrosis based on the ultrasound study. She was referred to see us, but she was not able to make in person appointments at that time, so no evaluation was carried out. She had an episode of gross hematuria that lasted about 1 week. The bleeding resolved and has not returned in the interim. She was seen in the emergency department just over a month ago (when the bleeding occurred). No urinary tract infection was identified. She was evaluated with a CT of the abdomen and pelvis done with IV contrast. No significant upper tract disease was identified. No hydronephrosis was identified. There was nonspecific bladder wall thickening in an under distended bladder. She was then referred to us for evaluation of her hematuria. She tells me that she was quite constipated around the time of that emergency department visit. She has no history of kidney stones. She has not had any prior urologic surgery. She is not on any anticoagulants. She has no known smoking history but has significant second hand smoke exposure. She has delivered 5 live births i ncluding one set of twins Review of Systems Narrative: No fevers or chills No vision change or dysphasia No diabetes or thyroid No shortness of breath, cough or hemoptysis No chest pain or palpitations No nausea, vomiting, hepatitis, ulcers, jaundice No seizures, strokes or peripheral neuropathy No bleeding disorders or anemia Chronic back pain. No gout PFSH All Active Problems (Updated 04/02/24 @ 07:01 by Juice Garcia MD) Reaction, situational (Chronic) Hyperlipidemia (Acute) Corneal abrasion (Acute) Ocular pain, right eye (Acute) Diverticulosis (Acute) S/P colonoscopy (Acute ~05/12/18) Encounter for screening colonoscopy (Acute) Medical History (Updated 04/02/24 @ 07:01 by Juice Garcia MD) Gross hematuria Ovarian cyst Cerumen impaction Obesity Asthma Hypertension GERD (gastroesophageal reflux disease) Eye pain Hypokalemia Surgical History History of oophorectomy, unilateral [place] teeth extracted H/O vaginal hysterectomy H/O oophorectomy Social History Smoking/Tobacco Use Status: Never Smoking risk assessment performed?: Yes Alcohol Intake: current Alcohol Intake frequency: holidays/special occasions only Drug use: Never Substance use type: does not use Housing: house Do you feel safe at home: Yes Do you feel safe in your relationship?: Yes Meds Allergies and Home Medications Allergies Allergy/AdvReac Type Severity Reaction Status Date / Time erythromycin base AdvReac Mild sick to Verified 04/01/24 10:56 stomach citalopram (From Celexa) AdvReac feels foggy Verified 04/01/24 10:56 Home Medications ?Medication ?Instructions ?Recorded ?Confirmed ?Type hydrochlorothiazide 25 mg tablet 25 mg PO DAILY 09/23/16 04/02/24 History losartan 50 mg tablet 50 mg PO DAILY 01/03/17 04/02/24 History levalbuterol tartrate 45 2 inh inhalation Q6H 02/18/18 04/02/24 History mcg/actuation aerosol inhaler (Xopenex HFA) multivitamin with iron (One Daily 1 tab PO DAILY 02/18/18 04/02/24 History Multivitamins with Minerals tablet) omega-3 fatty acids 1,000 mg 1,000 mg PO DAILY 02/18/18 04/02/24 History capsule (Fish Oil Concentrate) albuterol sulfate 90 mcg/actuation 2 puff inhalation Q6H PRN 06/17/22 04/02/24 Rx aerosol inhaler shortness of breath or wheezing #6.7 grams benzonatate 200 mg capsule 200 mg PO TID PRN cough #30 caps 06/17/22 04/02/24 Rx rosuvastatin 5 mg tablet 5 mg PO DAILY 06/17/22 04/02/24 History acetaminophen 500 mg capsule 500 mg PO Q6H PRN 02/18/23 04/02/24 History fluticasone propionate 44 2 puff inhalation BID 02/18/23 04/02/24 History mcg/actuation HFA aerosol inhaler (Flovent HFA) ibuprofen 200 mg tablet 200 mg PO Q6H PRN 02/18/23 04/02/24 History Exam Const General: cooperative Neck Neck: supple Resp Effort & Inspection: normal respiratory effort Auscultation: clear to auscultation bilaterally GI Palpation: soft and no masses Neuro General: patient alert, patient awake and patient oriented x3 Results Last Vital Signs Temp 35.9 C L 04/02/24 06:33 Pulse 90 04/02/24 06:33 Resp 18 04/02/24 06:33 BP 132/79 04/02/24 06:33 Pulse Ox 100 04/02/24 06:33 Time Spent Time spent with Patient: <40 minutes Time was spent: other
[2024-04-02] MEDS: Normal Saline Flush 10 ML SYR IV (06:59)
[2024-04-02] MEDS: Normal Saline 1,000 ML 30 ML IV (07:15)
[2024-04-02] MEDS: Lidocaine 2% Jelly 11 ML SYR (07:55)
[2024-04-02] MEDS: ceFAZolin 2 GM/50 ML BAG IVPB (07:56)
[2024-04-02] MEDS: Omnipaque 300 MG/ML 50 ML BTL (08:00)
--- NOTE | 2024-04-02 08:05 | PAPNONF_PTH ---
PATIENT: Rocio Munoz LOC: [facility] U#:[id number] AGE/SX: 64/F ROOM: RE04/02/[address]: Juice Garcia MD : 1960 BED: DIS: 04/02/2024 SPEC #: [id number] RECD: 04/02/24 12:52 STATUS: VIDAL REQ #: [id number] JASON: 04/02/24 08:[address]: Juice Garcia DEPT: [facility] Cytology RECD BY: Sarah Garcia ENTERED: 04/02/24 12:52 SP TYPE: [facility]ORNT[place] DR: Fanny Hammonds V Tissues: 1 - BODY FLUID CYTO(SPUTUM/URINE)[facility] Procedures: BODY FLUID CYTO(URINE/SPUTUM) Comments: [id number] (TV = 30 ml, 30 ml CYTOLYT ADDED) (REFRIGERATED)
--- NOTE | 2024-04-02 08:11 | W.PM.DSUDISC ---
Date of service: 04/02/24 Discharge Plan Disposition Patient Disposition: Home Discharge Details Attending Provider: Juice Garcia Primary Care Provider: Fanny Hammonds V Home Meds and New Rx's Prescriptions: No Action multivitamin with iron [One Daily Multi-Vit w-Mineral] tablet 1 tab PO DAILY levalbuterol tartrate [Xopenex HFA] 45 mcg/actuation HFA aerosol inhaler 2 inh IH Q6H omega-3 fatty acids [Fish Oil Concentrate] 1,000 mg capsule 1,000 mg PO DAILY fluticasone propionate [Flovent HFA] 44 mcg/actuation HFA aerosol inhaler 2 puff inhalation BID Rx Instructions: administer with spacer ibuprofen 200 mg tablet 200 mg PO Q6H PRN acetaminophen 500 mg capsule 500 mg PO Q6H PRN hydrochlorothiazide 25 MG tablet 25 mg PO DAILY losartan 50 MG tablet 50 mg PO DAILY benzonatate 200 mg capsule 200 mg PO TID PRN (Reason: cough) Qty: 30 0RF albuterol sulfate 90 mcg/actuation HFA aerosol inhaler 2 puff inhalation Q6H PRN (Reason: shortness of breath or wheezing) Qty: 6.7 0RF rosuvastatin 5 mg tablet 5 mg PO DAILY Patient Comments: TAKE 1 TABLET BY MOUTH EVERY DAY Discharge Instructions Additional Instructions: Will need a follow-up visit (can be by phone) to discuss her urine cytology results. Otherwise, we would recommend a yearly urinalysis either with us or with her primary care provider Discharge Orders Discharge Orders: Discharge Order (Routine); Ordered 04/02/24 Ordered By: Juice Garcia DS: Diagnosis Discharge Diagnosis (1) Gross hematuria:
--- NOTE | 2024-04-02 08:16 | ROE_ITS ---
Operative Note Operative Note PRE-OP DIAGNOSIS: Hematuria POST-OP DIAGNOSIS: same PROCEDURE: cystoscopy with bilateral retrograde pyelogram SURGEON: Juice Garcia ANESTHESIA TYPE: Local By Surgeon and General LMA/ETT Refer to Anesthesia Record ESTIMATED BLOOD LOSS: 5 PATHOLOGY: other (urine for cytology) COMPLICATIONS: None Patient was transported to: PACU Patient's condition: stable Implants: none Indications: This is a 64-year-old woman who has had episodes of gross painless hematuria. She has been evaluated with a CT scan with IV contrast. No suspicious renal lesions were identified. She does have some bladder wall thickening. She presents now for cystoscopy with bilateral retrograde pyelogram to complete her hematuria workup Findings: Normal-appearing bladder and ureters. Some delayed drainage from the right kidney consistent with a partial UPJ obstruction Procedure Description: The patient was given preoperative antibiotics and brought to the operating room on 04/02/2024. After successful induction of general anesthesia, she was placed in the dorsal lithotomy position. Her genitalia was prepped and draped. 2% Xylocaine jelly was then instilled into the urethra to act as a local anesthetic. A 22 [place] rigid cystoscope sheath was passed through the urethra into the bladder. The bladder was drained and the urine was collected and sent to the laboratory for cytology exam. The bladder was then inspected using a 30 degree lens. Both ureteral orifices appeared normal. No blood was seen coming from either side. Each orifice was cannulated with a 5 Dominican access catheter. Retrograde pyelograms were obtained by injecting Omnipaque through the access catheter under fluoroscopic guidance. Both ureters and collecting systems appeared smooth-walled with no filling defects. On 5-minute drainage film, the left side drained quite promptly. The right side drained more slowly and showed some dilation of the renal pelvis with a relative narrowing at the ureteropelvic junction. Contrast could be seen moving down each of the ureters fluoroscopically. The bladder was then inspected using both a 30 and a 70 degree lens. No papillary or nodular tumors were seen in the bladder. No stones were seen within the bladder. Based on today's examination, I see no evidence of bladder pathology. The bladder was drained, and the cystoscope was removed. The patient tolerated this procedure well with no complications. Date of Procedure: 04/02/24
--- NOTE | 2024-04-02 08:23 | DI.RAD_ITS ---
Exam(s) XR RETROGRADE IN OR EXAM: XR RETROGRADE IN OR CLINICAL HISTORY: gross hematuria TECHNIQUE: 2D and realtime digital imaging was performed. CONTRAST MATERIAL: Refer to procedure report. COMPARISON: No exams were available for comparison FINDINGS: Fluoroscopy was provided for Dr. Garcia during the performance of a retrograde evaluation of the victoria l collecting system. Please refer to the procedure report for complete details. Ka,r=6.1 mGy IMPRESSION: RADIATION DOSE DELIVERED: 0.0 0.0 0
--- NOTE | 2024-04-02 08:36 | W.ANESPOSTOP ---
Postoperative Evaluation Date, Time and Location Date Performed: 04/02/24 Time Performed: 08:36 Patient Location: PACU Vital Signs Most Recent Imported Vital Signs: Most Recent Vital Signs Temp Pulse Resp BP Pulse Ox 36.4 C L 88 11 L 105/70 99 04/02/24 08:24 04/02/24 08:31 04/02/24 08:31 04/02/24 08:31 04/02/24 08:31 Pain Score Most Recent Pain Score: Most Recent Pain Score Pain Level 0 04/02/24 06:33 Assessment Mental Status: Awake (Alert & Oriented to Patient Baseline) Airway and Respiratory Function: Patent airway with normal (patient baseline) respiratory exam Cardiovascular Function: Hemodynamically Stable Hydration Status: Adequately Hydrated Nausea & Vomiting: No Nausea or Vomiting Pain: Pain is tolerable per patient Peripheral Nerve Block: Patient did not receive a nerve block
== END 2024-04-02 09:40 | disposition home or self-care (01) ==
PROVIDERS: PCP Family Medicine; Visit Provider Urology
PROC: 0TBB8ZZ Excision of Bladder, Via Natural or Artificial Opening Endoscopic (ICD-10-PCS; CPT 52005; principal; 2024-04-02 07:30)
DX: R31.0 Gross hematuria (principal); E78.5 Hyperlipidemia, unspecified; J45.909 Unspecified asthma, uncomplicated; I10 Essential (primary) hypertension; C67.9 Malignant neoplasm of bladder, unspecified
CPT/HCPCS: 52005; 74420; 88104; J0131; J0690; J1100; J1885; J2250; J2405; J2704; Q9967

== ENCOUNTER 2024-06-08 16:38 | Emergency (ER) | payer OTHER, SELFPAY ==
[2024-06-08 16:45] VITALS: BP 137/86; PULSE 92; RESP 16; TEMP 36.4; O2SAT 98
[2024-06-08 17:57] VITALS: BP 131/99; PULSE 93; RESP 14; TEMP 37.2; O2SAT 99
--- NOTE | 2024-06-08 18:15 | DI.RAD_ITS ---
Exam(s) XR CHEST 2V PA LATERAL EXAM: XR CHEST 2V PA LATERAL CLINICAL HISTORY: covid, sob TECHNIQUE: 2D digital imaging was performed. Two views. COMPARISON: CR XR CHEST 2V PA LATERAL from 08/25/2018 FINDINGS: HEART: Normal size. Aorta: Not dilated. PULMONARY VASCULATURE: Normal. MEDIASTINUM: Unremarkable. LUNGS: Clear. PLEURAL SPACE: No pleural effusion or pneumothorax. BONE:Unremarkable for age. SOFT TISSUES: Unremarkable. IMPRESSION: No acute abnormality. DATA REPOSITORY: RADIATION DOSE DELIVERED:
[2024-06-08] MEDS: predniSONE 20 MG TAB 40 MG PO (18:43)
[2024-06-08 19:12] VITALS: BP 130/82; PULSE 89; RESP 16; TEMP 37.4; O2SAT 100
--- NOTE | 2024-06-08 23:17 | ED.GENADUL_ITS ---
Discharge Plan Disposition Patient Disposition: Home Condition: Stable Discharge Details Clinical Impression: Bronchitis Primary Care Provider: Fanny Hammonds V ED Provider: Sarah Rg Home Meds and New Rx's Prescriptions: New prednisone 20 mg tablet 40 mg PO .dailly Qty: 8 0RF albuterol sulfate [Ventolin HFA] 90 mcg/actuation HFA aerosol inhaler 2 puff inhalation Q6H PRNQty: 8.5 0RF Continued multivitamin with iron [One Daily Multi-Vit w-Mineral] tablet 1 tab PO DAILY levalbuterol tartrate [Xopenex HFA] 45 mcg/actuation HFA aerosol inhaler 2 inh IH Q6H omega-3 fatty acids [Fish Oil Concentrate] 1,000 mg capsule 1,000 mg PO DAILY fluticasone propionate [Flovent HFA] 44 mcg/actuation HFA aerosol inhaler 2 puff inhalation BID Rx Instructions: administer with spacer ibuprofen 200 mg tablet 200 mg PO Q6H PRN acetaminophen 500 mg capsule 500 mg PO Q6H PRN hydrochlorothiazide 25 MG tablet 25 mg PO DAILY losartan 50 MG tablet 50 mg PO DAILY benzonatate 200 mg capsule 200 mg PO TID PRN (Reason: cough) Qty: 30 0RF albuterol sulfate 90 mcg/actuation HFA aerosol inhaler 2 puff inhalation Q6H PRN (Reason: shortness of breath or wheezing) Qty: 6.7 0RF rosuvastatin 5 mg tablet 5 mg PO DAILY Patient Comments: TAKE 1 TABLET BY MOUTH EVERY DAY Discharge Instructions Instructions: Acute bronchitis Additional Instructions: Increase fluids, prednisone daily for the next 5 days, use your inhaler 2 puffs every 4-6 hours as needed for cough wheeze and shortness of breath there is no evidence of pneumonia on your x-ray today, I suspect you have bronchial inflammation from being ill with COVID Please return earlier should your symptoms persist for longer than 1 week or should you have any new or worsening complaints Referrals: Fanny Hammonds MD [Primary Care Provider] - 2 days HPI General Date/Time Provider Initiated Documentation: 06/08/24 16:56 . HPI Narrative: The patient is a 64-year-old female who presents 3 weeks post COVID-19 with a bronchospastic cough that is worsening despite [id number] medications and using her inhalers. She reports concern about her lack of improvement. She does not report any fever, chills, calf pain or swelling, recent falls, surgeries, long drives, or history of coagulopathy. She does not report any chest discomfort. She has a history of asthma and does not smoke tobacco. Related Data Home Medications ?Medication ?Instructions ?Recorded ?Confirmed hydrochlorothiazide 25 mg tablet 25 mg PO DAILY 09/23/16 06/08/24 losartan 50 mg tablet 50 mg PO DAILY 01/03/17 06/08/24 levalbuterol tartrate 45 2 inh inhalation Q6H 02/18/18 06/08/24 mcg/actuation aerosol inhaler (Xopenex HFA) multivitamin with iron (One Daily 1 tab PO DAILY 02/18/18 06/08/24 Multivitamins with Minerals tablet) omega-3 fatty acids 1,000 mg 1,000 mg PO DAILY 02/18/18 06/08/24 capsule (Fish Oil Concentrate) albuterol sulfate 90 mcg/actuation 2 puff inhalation Q6H PRN 06/17/22 06/08/24 aerosol inhaler shortness of breath or wheezing #6.7 grams benzonatate 200 mg capsule 200 mg PO TID PRN cough #30 caps 06/17/22 06/08/24 rosuvastatin 5 mg tablet 5 mg PO DAILY 06/17/22 06/08/24 acetaminophen 500 mg capsule 500 mg PO Q6H PRN 02/18/23 06/08/24 fluticasone propionate 44 2 puff inhalation BID 02/18/23 06/08/24 mcg/actuation HFA aerosol inhaler (Flovent HFA) ibuprofen 200 mg tablet 200 mg PO Q6H PRN 02/18/23 06/08/24 albuterol sulfate 90 mcg/actuation 2 puff inhalation Q6H PRN #8.5 06/08/24 aerosol inhaler (Ventolin HFA) grams prednisone 20 mg tablet 40 mg (2 x 20 mg) PO .dailly #8 06/08/24 tabs Previous Rx's ?Medication ?Instructions ?Recorded albuterol sulfate 90 mcg/actuation 2 puff inhalation Q6H PRN 06/17/22 aerosol inhaler shortness of breath or wheezing #6.7 grams benzonatate 200 mg capsule 200 mg PO TID PRN cough #30 caps 06/17/22 albuterol sulfate 90 mcg/actuation 2 puff inhalation Q6H PRN #8.5 06/08/24 aerosol inhaler (Ventolin HFA) grams prednisone 20 mg tablet 40 mg (2 x 20 mg) PO .dailly #8 06/08/24 tabs Allergies Allergy/AdvReac Type Severity Reaction Status Date / Time erythromycin base AdvReac Mild sick to Verified 06/08/24 16:57 stomach citalopram (From Celexa) AdvReac feels foggy Verified 06/08/24 16:57 General Stated Complaint: RespSymp HEATHER: 4 Exam Narrative Exam Narrative: General Appearance: Patient is alert and oriented, no acute distress. Vital signs: Oxygen saturation is at 100% on room air. HEENT: Within normal limits. Respiratory: Lungs are clear to auscultation. Cardiovascular: Within normal limits. Gastrointestinal: Within normal limits. Skin: Warm and dry, no rash. Neurological: Normal. Course Vital Signs Vital signs: Vital Signs Temperature 36.4 C 06/08/24 16:45 Pulse 92 H 06/08/24 16:45 Respiratory Rate 16 06/08/24 16:45 Blood Pressure 137/86 06/08/24 16:45 Pulse Oximetry 98 06/08/24 16:45 Temperature 37.4 C 06/08/24 19:12 Temperature Source Temporal Artery Scan 06/08/24 17:57 Pulse 89 06/08/24 19:12 Respiratory Rate 16 06/08/24 19:12 Respiratory Effort Normal 06/08/24 17:57 Blood Pressure 130/82 06/08/24 19:12 Blood Pressure Position Sitting 06/08/24 17:57 Pulse Oximetry 100 06/08/24 19:12 Oxygen Delivery Method Room Air 06/08/24 17:57 Oxygen Flow Rate 0 06/08/24 16:45 Pain Level 2 06/08/24 17:57 Medical Decision Making Imaging Chest x-ray shows no evidence of acute abnormality. Initial Assessment: 64-year-old female presents 3 weeks post Covid with bronchospastic cough worsening despite cbxm-[id number]-[id number] medications and using her inhalers. No fever or chills. Concerned about lack of improvement. No calf pain or swelling, recent falls, surgeries, long drives, or history of coagulop athy. History of asthma. No chest discomfort. ED Course: - Physical exam: alert and oriented, no acute distress, lungs clear to auscultation, no peripheral edema or calf swelling or tenderness. - Chest x-ray ordered, read by me: no evidence of acute abnormality. - Low suspicion for pulmonary embolism based on vitals and exam. - Prednisone given for bronchospastic cough and viral bronchitis. - Encouraged to continue using albuterol with spacer, refill supplied. - Patient discharged home in stable condition with stable vitals. Oxygen 100% on room air, speaking in complete sentences, in no respiratory distress. Final Assessment: Patient evaluated for worsening bronchospastic cough post Covid. Chest x-ray showed no acute abnormality. Treated with prednisone and advised to continue albuterol. Discharged in stable condition. Clinical Impression: - Bronchospastic cough Disposition: - Discharge MDM Components Evaluation: - Number of Differential Diagnoses or Management Options: Bronchospastic cough - Amount and Complexity of Data Reviewed: Chest x-ray - Risk of Complication and Morbidity or Mortality: Low suspicion for pulmonary embolism based on vitals and exam. Quality:SDOH Health Related Social Needs: No Data to Display PFSH All Active Problems (Updated 06/08/24 @ 19:02 by YAMILA Barnard) Bronchitis (Acute) Reaction, situational (Chronic) Hyperlipidemia (Acute) Corneal abrasion (Acute) Ocular pain, right eye (Acute) Diverticulosis (Acute) S/P colonoscopy (Acute ~05/12/18) Encounter for screening colonoscopy (Acute) Medical History (Updated 06/08/24 @ 19:02 by YAMILA Barnard) Gross hematuria Ovarian cyst Cerumen impaction Obesity Asthma Hypertension GERD (gastroesophageal reflux disease) Eye pain Hypokalemia Surgical History History of oophorectomy, unilateral [place] teeth extracted H/O vaginal hysterectomy H/O oophorectomy Social History Smoking/Tobacco Use Status: Never Smoking risk assessment performed?: Yes Alcohol Intake: current Alcohol Intake frequency: holidays/special occasions only Drug use: Never Substance use type: does not use Housing: house Do you feel safe at home: Yes Do you feel safe in your relationship?: Yes
== END 2024-06-08 19:12 | disposition home or self-care (01) ==
PROVIDERS: Emergency Provider Physician Assistant; PCP Family Medicine
DX: J40 Bronchitis, not specified as acute or chronic (principal); J45.909 Unspecified asthma, uncomplicated; I10 Essential (primary) hypertension; E78.5 Hyperlipidemia, unspecified
CPT/HCPCS: 99283; 71046; J7512

== ENCOUNTER 2024-07-06 20:00 | Emergency (ER) | payer OTHER, SELFPAY ==
[2024-07-06 20:03] VITALS: BP 135/94; PULSE 105; RESP 24; TEMP 36.7; O2SAT 98
[2024-07-06 20:06] VITALS: BP 135/94; PULSE 105; RESP 24; TEMP 36.7; O2SAT 98
--- NOTE | 2024-07-06 20:15 | RT.EKG_ITS ---
APPROVED REPORT Exam: Resting ECG Reason for Exam: chest tightness Patient Location: E HR:73 bpm ECG Measurements Heart Rate 73 AXIS FL 153 P 80 QRSd 81 QRS 53 QT 404 T 79 QTc 446 Conclusion Sinus rhythm 73 Normal axis no stemi
[2024-07-06] MEDS: Dexamethasone 4 MG TAB 8 MG PO (20:31)
[2024-07-06 21:17] VITALS: BP 147/68; PULSE 77
--- NOTE | 2024-07-06 21:26 | DI.RAD_ITS ---
Exam(s) XR CHEST 2V PA LATERAL EXAM: XR CHEST 2V PA LATERAL CLINICAL HISTORY: cough TECHNIQUE: 2D digital imaging was performed of the chest. Two images were obtained. PA and lateral views were obtained. COMPARISON: CR XR CHEST 2V PA LATERAL from 06/08/2024 FINDINGS: MEDIASTINUM: Normal. HEART: Normal. PULMONARY VASCULATURE: Normal. LUNGS: Clear. PLEURAL SPACE: No pleural effusion or pneumothorax. BONE:Within normal limits for the patient's age. OTHER FINDINGS:Normal. IMPRESSION: No acute pulmonary findings. DATA REPOSITORY: RADIATION DOSE DELIVERED:
[2024-07-06] MEDS: Doxycycline Hyclate 100 MG CAP PO (21:43)
[2024-07-06 22:01] VITALS: BP 137/80; PULSE 80; RESP 16; TEMP 36.8; O2SAT 98
--- NOTE | 2024-07-06 22:32 | ED.GENADUL_ITS ---
Discharge Plan Disposition Patient Disposition: Home Condition: Stable Discharge Details Clinical Impression: Cough, Atypical pneumonia Primary Care Provider: Fanny Hammonds V ED Provider: Ruben Pino Home Meds and New Rx's Prescriptions: New promethazine 6.25 mg/5 mL syrup 12.5 mg PO Q6H PRN (Reason: cough) Qty: 120 0RF doxycycline hyclate 100 mg capsule 100 mg PO BID 7 Days Qty: 14 0RF No Action multivitamin with iron [One Daily Multi-Vit w-Mineral] tablet 1 tab PO DAILY levalbuterol tartrate [Xopenex HFA] 45 mcg/actuation HFA aerosol inhaler 2 inh IH Q6H omega-3 fatty acids [Fish Oil Concentrate] 1,000 mg capsule 1,000 mg PO DAILY fluticasone propionate [Flovent HFA] 44 mcg/actuation HFA aerosol inhaler 2 puff inhalation BID Rx Instructions: administer with spacer ibuprofen 200 mg tablet 200 mg PO Q6H PRN acetaminophen 500 mg capsule 500 mg PO Q6H PRN hydrochlorothiazide 25 MG tablet 25 mg PO DAILY losartan 50 MG tablet 50 mg PO DAILY benzonatate 200 mg capsule 200 mg PO TID PRN (Reason: cough) Qty: 30 0RF albuterol sulfate 90 mcg/actuation HFA aerosol inhaler 2 puff inhalation Q6H PRN (Reason: shortness of breath or wheezing) Qty: 6.7 0RF rosuvastatin 5 mg tablet 5 mg PO DAILY Patient Comments: TAKE 1 TABLET BY MOUTH EVERY DAY prednisone 20 mg tablet 40 mg PO .dailly Qty: 8 0RF albuterol sulfate [Ventolin HFA] 90 mcg/actuation HFA aerosol inhaler 2 puff inhalation Q6H PRNQty: 8.5 0RF Discharge Instructions Instructions: Community-acquired pneumonia in adults Additional Instructions: Viral testing is negative today. EKG does not demonstrate cardiac abnormality Chest x-ray does demonstrate signs consistent with pneumonia and we will start antibiotics. First dose given in the emergency department remainder of the prescription was sent to the pharmacy along with some cough medication. Please continue your albuterol inhalers every 4 hours for the next 2 to 3 days to help control your symptoms Please follow-up with your PCP Stand Alone Forms: Work Release HPI General Date/Time Provider Initiated Documentation: 07/06/24 20:12 . Limitations to Documentation: no limitations . Information obtained by: patient . HPI Narrative: 64-year-old female with past medical history of asthma and passive smoking exposure presents for evaluation of cough and fatigue. She reports that her family has been sick with pneumonia and influenza recently. She denies any fever, but she just reports that her chest tightness and cough have not been improving. She reports a lot of nasal drainage and posterior nasal drip, she reports initially the cough was productive but it is not anymore and is very dry hacking cough. Related Data Home Medications ?Medication ?Instructions ?Recorded ?Confirmed hydrochlorothiazide 25 mg tablet 25 mg PO DAILY 09/23/16 07/06/24 losartan 50 mg tablet 50 mg PO DAILY 01/03/17 07/06/24 levalbuterol tartrate 45 2 inh inhalation Q6H 02/18/18 07/06/24 mcg/actuation aerosol inhaler (Xopenex HFA) multivitamin with iron (One Daily 1 tab PO DAILY 02/18/18 07/06/24 Multivitamins with Minerals tablet) omega-3 fatty acids 1,000 mg 1,000 mg PO DAILY 02/18/18 07/06/24 capsule (Fish Oil Concentrate) albuterol sulfate 90 mcg/actuation 2 puff inhalation Q6H PRN 06/17/22 07/06/24 aerosol inhaler shortness of breath or wheezing #6.7 grams benzonatate 200 mg capsule 200 mg PO TID PRN cough #30 caps 06/17/22 07/06/24 rosuvastatin 5 mg tablet 5 mg PO DAILY 06/17/22 07/06/24 acetaminophen 500 mg capsule 500 mg PO Q6H PRN 02/18/23 07/06/24 fluticasone propionate 44 2 puff inhalation BID 02/18/23 07/06/24 mcg/actuation HFA aerosol inhaler (Flovent HFA) ibuprofen 200 mg tablet 200 mg PO Q6H PRN 02/18/23 07/06/24 albuterol sulfate 90 mcg/actuation 2 puff inhalation Q6H PRN #8.5 06/08/24 07/06/24 aerosol inhaler (Ventolin HFA) grams prednisone 20 mg tablet 40 mg (2 x 20 mg) PO .dailly #8 06/08/24 07/06/24 tabs doxycycline hyclate 100 mg capsule 100 mg PO BID 7 days #14 caps 07/06/24 promethazine 6.25 mg/5 mL oral 12.5 mg (10 mL) PO Q6H PRN cough 07/06/24 syrup #120 mL Previous Rx's ?Medication ?Instructions ?Recorded albuterol sulfate 90 mcg/actuation 2 puff inhalation Q6H PRN 06/17/22 aerosol inhaler shortness of breath or wheezing #6.7 grams benzonatate 200 mg capsule 200 mg PO TID PRN cough #30 caps 06/17/22 albuterol sulfate 90 mcg/actuation 2 puff inhalation Q6H PRN #8.5 06/08/24 aerosol inhaler (Ventolin HFA) grams prednisone 20 mg tablet 40 mg (2 x 20 mg) PO .dailly #8 06/08/24 tabs doxycycline hyclate 100 mg capsule 100 mg PO BID 7 days #14 caps 07/06/24 promethazine 6.25 mg/5 mL oral 12.5 mg (10 mL) PO Q6H PRN cough 07/06/24 syrup #120 mL Allergies Allergy/AdvReac Type Severity Reaction Status Date / Time erythromycin base AdvReac Mild sick to Verified 07/06/24 20:07 stomach citalopram (From Celexa) AdvReac feels foggy Verified 07/06/24 20:07 General Stated Complaint: RespSymp HEATHER: 3 Exam Narrative Exam Narrative: Review of Systems: All systems reviewed & are unremarkable except as noted in HPI and below Well-developed, no acute distress NCAT RRR, no murmur Voice hoarse Unlabored respiratory effort, clear bilaterally Nondistended abdomen soft nontender Course Vital Signs Vital signs: Vital Signs Temperature 36.7 C 07/06/24 20:03 Pulse 105 H 07/06/24 20:03 Respiratory Rate 24 07/06/24 20:03 Blood Pressure 135/94 H 07/06/24 20:03 Pulse Oximetry 98 07/06/24 20:03 Temperature 36.8 C 07/06/24 22:01 Pulse 80 07/06/24 22:01 Respiratory Rate 16 07/06/24 22:01 Respiratory Effort Normal 07/06/24 20:49 Respiratory Depth Normal 07/06/24 20:49 Blood Pressure 137/80 07/06/24 22:01 Blood Pressure Mean 94 07/06/24 21:17 Blood Pressure Position Sitting 07/06/24 20:06 Pulse Oximetry 98 07/06/24 22:01 Oxygen Delivery Method Room Air 07/06/24 20:06 Oxygen Flow Rate 0 07/06/24 20:06 Medical Decision Making Emergent evaluation of cough and URI symptoms. Initial differential includes URI, pneumonia, viral illness. The patient's chest tightness seems more consistent with asthma and ACS. An EKG was obtained and does not reveal any acute ischemic changes, independently interpreted sinus 73 normal axis no STEMI. Chest x-ray does seem concerning for retrocardiac consolidation and will start her on doxycycline. She was given a single dose of dexamethasone. At this time she is not having wheezing, but I recommend that she continue her breathing treatments every 4 hours and take [id number] Mucinex. Additional cough medication was sent to her pharmacy as well. Patient encouraged to follow-up closely with PCP. Quality:SDOH Health Related Social Needs: No Data to Display PFSH All Active Problems (Updated 07/06/24 @ 21:35 by Ruben Pino MD) Atypical pneumonia (Acute) Cough (Acute) Bronchitis (Acute) Reaction, situational (Chronic) Hyperlipidemia (Acute) Corneal abrasion (Acute) Ocular pain, right eye (Acute) Diverticulosis (Acute) S/P colonoscopy (Acute ~05/12/18) Encounter for screening colonoscopy (Acute) Medical History (Updated 07/06/24 @ 21:35 by Ruben Pino MD) Gross hematuria Ovarian cyst Cerumen impaction Obesity Asthma Hypertension GERD (gastroesophageal reflux disease) Eye pain Hypokalemia Surgical History History of oophorectomy, unilateral [place] teeth extracted H/O vaginal hysterectomy H/O oophorectomy Social History Smoking/Tobacco Use Status: Never Smoking risk assessment performed?: Yes Alcohol Intake: current Alcohol Intake frequency: holidays/special occasions only Drug use: Never Substance use type: does not use Housing: house Do you feel safe at home: Yes Do you feel safe in your relationship?: Yes
--- NOTE | 2024-07-06 23:37 | DI.VRAD_ITS ---
PROCEDURE INFORMATION: Exam: XR Chest Exam date and time: 07/06/2024 9:17 PM Age: 64 years old Clinical indication: Other: Cough TECHNIQUE: Imaging protocol: Radiologic exam of the chest. Views: 2 views. COMPARISON: CR XR CHEST 2V PA LATERAL 06/08/2024 6:53 PM FINDINGS: Lungs: No pulmonary consolidation is seen. Pleural spaces: No pleural effusion or pneumothorax is demonstrated. Heart/Mediastinum: The heart appears normal in size. Bones/joints: The visualized bony structures appear grossly intact. IMPRESSION: No active disease is seen in the chest. Dictated and Authenticated by: Trace Benjamin MD. Orderin Alvarez Boyer MD
== END 2024-07-06 22:01 | disposition home or self-care (01) ==
PROVIDERS: Emergency Provider Emergency Medicine; PCP Family Medicine
DX: J18.9 Pneumonia, unspecified organism (principal); R05.9 Cough, unspecified; I10 Essential (primary) hypertension
CPT/HCPCS: 93005; 99284; 71046; 93010; 99283; J8540

== ENCOUNTER 2025-04-12 12:34 | Outpatient (REF) | payer OTHER, SELFPAY ==
[2025-04-12 19:59] LABS: Hemoglobin A1C 5.5 % (<5.7)
[2025-04-12 20:01] LABS: ALT 31 U/L (10-49); AST 26 U/L (<34); Albumin 4.4 g/dL (3.2-5.0); Alkaline Phosphatase 82 U/L (46-116); Anion Gap 9.6 mmol/L (3-11); BUN 20 mg/dL (9-23); Bilirubin, Total 0.8 mg/dL (0.2-1.2); CO2 27.4 mmol/L (20.0-31.0); Calcium 9.7 mg/dL (8.3-10.6); Chloride 106 mmol/L (98-107); Cholesterol 130 mg/dL (<200); Glucose 106 mg/dL (74-106); HDL Cholesterol 72 mg/dL (>40); Potassium 3.4 mmol/L (3.5-5.1); Sodium 143 mmol/L (136-145); Total Protein 6.8 g/dL (5.7-8.2)
== END 2025-04-12 12:35 | disposition home or self-care (01) ==
LOC: NCHCN 12:34
PROVIDERS: PCP Family Medicine; Visit Provider Family Medicine
DX: I10 Essential (primary) hypertension (principal); Z13.1 Encounter for screening for diabetes mellitus; E78.5 Hyperlipidemia, unspecified
CPT/HCPCS: 80053; 80061; 83036

== ENCOUNTER → 2025-04-21 00:16 | Outpatient (CLI) | payer OTHER, SELFPAY ==
--- NOTE | 2025-04-21 11:37 | DI.MAMMO_ITS ---
Exam(s) MAMMO SCREENING EXAM: MAMMO SCREENING CLINICAL HISTORY: SCREENING MAMMO Z12.31. TECHNIQUE: Bilateral full field digital CC and MLO mammographic images were obtained with 3D tomosynthesis and utilizing computer aided detection (CAD). COMPARISON: Prior mammograms were reviewed. FINDINGS: There has been no significant change in the appearance and distribution of the fibroglandular tissue. There are no new spiculated masses nor malignant appearing microcalcification groups. There is no significant architectural distortion nor skin thickening-retraction. IMPRESSION: No radiographic evidence of malignancy. BI-RADS Category 1 - Negative Breast Density - Category A - The breast are almost entirely fatty. Breast density Category C or D implies that the patient has dense breast tissue. Dense breast tissue can make it harder to find cancer on a mammogram. Dense breast tissue is also associated with an increased risk of breast cancer. This information about the result of the mammogram report was provided to the patient to raise their awareness. Use this report when you speak with the patient about their risks for breast cancer, which includes their family history. At that time, you may recommend additional screening tests (Ultrasound or MRI) as these tests may add significant information. A negative radiographic report should not delay biopsy if a dominant or clinically suspicious mass is present. Up to ten percent of cancers are not identified on mammography. A negative report may reinforce clinical impression. Adenosis and dense breasts may obscure an underlying neoplasm. False positive reports average 6 to 10%. Patient will receive a letter notifying them of these results.
== END ==
LOC: DI 00:16
PROVIDERS: PCP Family Medicine; Visit Provider Family Medicine
DX: Z12.31 Encounter for screening mammogram for malignant neoplasm of breast (principal)
CPT/HCPCS: 77063; 77067